=== PATIENT | female | born 1955 | race Caucasian/White ===

== ENCOUNTER 2024-11-26 08:25 | Outpatient (CLI) | payer MEDICARE, OTHER | END 2024-11-26 08:26 | disposition home or self-care (01) | LOC: SCSMRI 08:25 | PROVIDERS: ATTEND Internal Medicine | DX: M54.41 Lumbago with sciatica, right side (principal); M47.816 Spondylosis without myelopathy or radiculopathy, lumbar region | CPT/HCPCS: 72148 ==